=== PATIENT | female | born 1935 | race Caucasian/White ===

== ENCOUNTER 2022-02-28 13:43 | Emergency (ER) | payer BC, MEDICARE ==
[2022-02-28] MEDS ORDERED: Diltiazem 25 MG/5 ML SDV IVPUSH ONE ×2 (15:11→16:32)
[2022-02-28] MEDS ORDERED: Diltiazem 100 MG in Sodium Chloride 0.9% 100 ML IV SCH (15:15)
[2022-02-28] MEDS ORDERED: Propofol 200 MG/20 ML SDV ONE (19:27)
== END 2022-02-28 20:43 | disposition home or self-care (01) ==
LOC: JP.ED 13:43
DX: I48.0 Paroxysmal atrial fibrillation (principal); I10 Essential (primary) hypertension; Z88.1 Allergy status to other antibiotic agents; Z88.8 Allergy status to other drugs, medicaments and biological substances; Z79.899 Other long term (current) drug therapy; Z79.01 Long term (current) use of anticoagulants
CPT/HCPCS: 36415; 71045; 71045-26; 80053; 81001; 84443; 84484; 85025; 85610; 92960; 93005; 93010; 96365; 96366; 96376; 99284; 99285-25; J2704; J3490

== ENCOUNTER 2022-03-10 14:26 | Emergency (ER) | payer MEDICARE | END 2022-03-10 16:19 | disposition home or self-care (01) | LOC: JP.ED 14:26 | DX: R07.89 Other chest pain (principal); F41.9 Anxiety disorder, unspecified; I10 Essential (primary) hypertension; Z79.82 Long term (current) use of aspirin; Z79.899 Other long term (current) drug therapy; Z79.01 Long term (current) use of anticoagulants; Z88.6 Allergy status to analgesic agent; Z88.8 Allergy status to other drugs, medicaments and biological substances | CPT/HCPCS: 36415; 84484; 93005; 93010; 99282; 99285-25 ==

== ENCOUNTER 2022-08-20 13:13 | Emergency (ER) | payer MEDICARE, BC ==
[2022-08-20] MEDS ORDERED: Furosemide 40 MG/4 ML VIAL ONE (15:30)
[2022-09-14 10:55] LABS: ESTIMATED GFR 71 mL/min (>60)
[2022-09-14 10:56] LABS: TROPONIN I HIGH SENSITIVITY 14.1 pg/mL (<=60.3)
== END 2022-08-20 16:55 | disposition home or self-care (01) ==
LOC: JP.ED 13:13
DX: I48.91 Unspecified atrial fibrillation (principal); I51.7 Cardiomegaly; E87.70 Fluid overload, unspecified; Z88.1 Allergy status to other antibiotic agents; Z88.8 Allergy status to other drugs, medicaments and biological substances
CPT/HCPCS: 36415; 71046; 80053; 83880; 84484; 85025; 85610; 93005; 96374; 99283; J1940